=== PATIENT | female | born 1945 | race Caucasian/White ===

== ENCOUNTER 2020-10-14 02:55 | Outpatient (CLI) | payer MEDICARE, OTHER | END 2020-10-14 23:59 | disposition home or self-care (01) | LOC: RT 02:55 | PROVIDERS: ATTEND Internal Medicine Pulmonary Disease | DX: R94.2 Abnormal results of pulmonary function studies (principal); J45.909 Unspecified asthma, uncomplicated | CPT/HCPCS: 94010; 94618 ==

== ENCOUNTER 2024-05-08 15:07 | Inpatient (IN) | payer MEDICARE, OTHER ==
[~2024-05-08] VITALS: Ht 160 cm; Wt 105.7 kg
[2024-05-08] MEDS ORDERED: iohexol 350MG/ML 100ml bottle IV ONE (15:31)
[2024-05-08 15:53] LABS: BASOPHILS % (AUTO) 0.3 % (0-1); EOSINOPHILS # (AUTO) 0.5 X10'3 (0-0.9); EOSINOPHILS % (AUTO) 5.1 % (0-6); HEMATOCRIT 41.4 % (35.0-45.0); HEMOGLOBIN 13.5 g/dl (12.0-16.0); LYMPHOCYTES # (AUTO) 1.9 X10'3 (1.1-4.8); LYMPHOCYTES % (AUTO) 21.2 % (21-51); MEAN CORPUSCULAR HEMOGLOBIN 29.1 PG (27.0-31.0); MEAN CORPUSCULAR HGB CONC 32.5 g/dL (33.0-36.5); MEAN CORPUSCULAR VOLUME 89.5 FL (78-98); MEAN PLATELET VOLUME 7.9 FL (7.4-10.4); MONOCYTES # (AUTO) 0.8 X10'3 (0-0.9); MONOCYTES % (AUTO) 9.1 % (2-12); NEUTROPHILS # (AUTO) 5.9 X10'3 (1.8-7.7); NEUTROPHILS % (AUTO) 64.3 % (42-75); PLATELET COUNT 250 X10'3 (140-440); RED BLOOD COUNT 4.63 X10'6 (4.20-5.60); RED CELL DISTRIBUTION WIDTH 15.1 % (11.5-14.5); WHITE BLOOD COUNT 9.2 X10'3 (4.5-11.0)
[2024-05-08 16:03] LABS: ANION GAP 8 (8-16); BLOOD UREA NITROGEN 26 MG/DL (7-18); BUN/CREATININE RATIO 25.2 (10.0-20.0); CALCIUM 9.8 MG/DL (8.5-10.1); CHLORIDE 106 MMOL/L (99-107); CREATININE 1.03 MG/DL (0.40-0.90); GLUCOSE 148 MG/DL (70-104); POTASSIUM 3.7 MMOL/L (3.5-5.1); SODIUM 145 MMOL/L (135-145); TOTAL CARBON DIOXIDE 31.1 MMOL/L (24-32); eCRCL 35 ML/MIN; eGFR 51 ML/MIN
[2024-05-08 16:12] LABS: APTT 26 SECONDS (22-32); PROTHROMBIN TIME 10.4 SECONDS (9.0-12.0)
[2024-05-08] MEDS ORDERED: ondansetron/PF 4mg/2ml inj IV PRN (19:00)
[2024-05-08] MEDS ORDERED: magnesium hydroxide 30ml (MOM) UD suspension PO PRN (19:00)
[2024-05-08] MEDS ORDERED: magnesium Cl slow-release 64mg tablet PO PRN (19:00)
[2024-05-08] MEDS ORDERED: mag hydrox/Alum hydrox/simeth 30ml oral suspension PO PRN (19:00)
[2024-05-08] MEDS ORDERED: potassium Cl 20 mEq SR tablet PO PRN ×2 (19:00)
[2024-05-08] MEDS ORDERED: potassium Cl 40MEQ/1/2NS 520ml 520 ML IV PRN (19:00)
[2024-05-08] MEDS ORDERED: magnesium sulf-water 2g/50mL 50 ML IV PRN (19:00)
[2024-05-08] MEDS ORDERED: magnesium sulf-water 4G/100mL 100 ML IV PRN (19:00)
[2024-05-08 19:58] LABS: HEMOGLOBIN A1C 6.3 % (4.5-6.2)
[2024-05-08] MEDS: K and/or MAG REPLACEMENT MC SCH (20:00)
[2024-05-08] MEDS: labetalol 20mg/4ml (5mg/ml) syringe IV PRN (20:45)
[2024-05-08] MEDS: aspirin 325mg tablet, delayed-release (Ecotrin) PO ONE (20:50)
[2024-05-08] MEDS: docusate sod 100mg capsule PO SCH (20:50)
[2024-05-08] MEDS: ROSUVASTATIN CALCIUM 5 MG TABLET PO SCH (20:51)
[2024-05-08] MEDS: clopidogrel 300mg tablet PO ONE (20:58)
[2024-05-08] MEDS: normal saline 1000ml 1,000 ML IV SCH (21:01)
[2024-05-08] MEDS ORDERED: FLUT1DIS20 INH (22:00)
[2024-05-08] MEDS ORDERED: ALBU18HF2 INH (22:01)
[2024-05-08] MEDS ORDERED: HYDR50TA46 PO (22:01)
[2024-05-08] MEDS ORDERED: FURO-150 PO (22:02)
[2024-05-08] MEDS ORDERED: NIFE90TA70 PO (22:04)
[2024-05-08] MEDS ORDERED: NIFE-128 PO (22:04)
[2024-05-08] MEDS ORDERED: HYDR100T12 PO (22:17)
[2024-05-08] MEDS: hydrALAZINE 20mg/ml inj. IV PRN (23:10)
[2024-05-09 02:19] LABS: BASOPHILS # (AUTO) 0.1 X10'3 (0-0.2); BASOPHILS % (AUTO) 1.2 % (0-1); EOSINOPHILS # (AUTO) 0.5 X10'3 (0-0.9); EOSINOPHILS % (AUTO) 5.9 % (0-6); HEMATOCRIT 39.9 % (35.0-45.0); LYMPHOCYTES % (AUTO) 21.7 % (21-51); MEAN CORPUSCULAR HEMOGLOBIN 28.7 PG (27.0-31.0); MEAN CORPUSCULAR HGB CONC 32.6 g/dL (33.0-36.5); MEAN CORPUSCULAR VOLUME 88.2 FL (78-98); MONOCYTES # (AUTO) 0.8 X10'3 (0-0.9); NEUTROPHILS # (AUTO) 5.7 X10'3 (1.8-7.7); NEUTROPHILS % (AUTO) 62.2 % (42-75); PLATELET COUNT 246 X10'3 (140-440); RED BLOOD COUNT 4.52 X10'6 (4.20-5.60); RED CELL DISTRIBUTION WIDTH 14.8 % (11.5-14.5); WHITE BLOOD COUNT 9.2 X10'3 (4.5-11.0)
[2024-05-09 02:36] LABS: ALANINE AMINOTRANSFERASE 31 U/L (12-78); ALBUMIN 3.5 G/DL (3.4-5.0); ALBUMIN/GLOBULIN RATIO 1.1 (1.1-1.5); ALKALINE PHOSPHATASE 61 IU/L (46-116); ANION GAP 8 (8-16); ASPARTATE AMINO TRANSFERASE 24 U/L (10-37); BILIRUBIN,TOTAL 0.4 MG/DL (0.1-1.0); BLOOD UREA NITROGEN 22 MG/DL (7-18); BUN/CREATININE RATIO 23.7 (10.0-20.0); CALCIUM 9.2 MG/DL (8.5-10.1); CHLORIDE 106 MMOL/L (99-107); CHOL/HDL RATIO 3.3 (0.00-4.99); CHOLESTEROL 218 MG/DL (0-200); CREATININE 0.93 MG/DL (0.40-0.90); GLUCOSE 164 MG/DL (70-104); HDL CHOLESTEROL 66 MG/DL (35-60); LDL CHOLESTEROL 122 MG/DL (50-100); MAGNESIUM 1.8 MG/DL (1.5-2.4); POTASSIUM 3.6 MMOL/L (3.5-5.1); SODIUM 141 MMOL/L (135-145); TOTAL PROTEIN 6.7 G/DL (6.4-8.2); TRIGLYCERIDES 91 MG/DL (20-135); eCRCL 39 ML/MIN; eGFR 58 ML/MIN
[2024-05-09] MEDS: Fluticasone/Salmeterol (Advair 250-50 Diskus) IH SCH (08:00)
[2024-05-09] MEDS: LORazepam 2 mg/ml vial IV ONE (09:52)
[2024-05-09] MEDS: aspirin 81mg, enteric-coated 1 TAB TABLET.DR PO SCH (09:54)
[2024-05-09] MEDS: clopidogrel 75mg tablet PO SCH (09:56)
[2024-05-09] MEDS: enoxaparin 40mg/0.4ml syringe SUBCUT SCH (09:59)
[2024-05-09 12:11] VITALS: PULSE 56; RESP 16; O2SAT 97
[2024-05-09] MEDS: albuterol 2.5 MG/3 ML nebule NEB SCH (14:00)
[2024-05-09] MEDS: budesonide 0.5mg/2ml UD nebule IH SCH (20:00)
[2024-05-09] MEDS: amLODIPine 5mg tablet PO SCH (21:41)
[2024-05-09] MEDS: losartan 50mg tablet PO SCH (21:42)
[2024-05-09 22:15] VITALS: BP 211/83; PULSE 61; RESP 10; TEMP 97.7; O2SAT 95
[2024-05-10] VITALS (8 sets, daily range): BP systolic 103–200; BP diastolic 33–86; PULSE 42–60; RESP 14–20; TEMP 97.6–98.1; O2SAT 93–97
[2024-05-10 05:01] LABS: BASOPHILS # (AUTO) 0.1 X10'3 (0-0.2); EOSINOPHILS # (AUTO) 0.6 X10'3 (0-0.9); EOSINOPHILS % (AUTO) 7.5 % (0-6); HEMATOCRIT 39.5 % (35.0-45.0); HEMOGLOBIN 12.9 g/dl (12.0-16.0); LYMPHOCYTES % (AUTO) 25.8 % (21-51); MEAN CORPUSCULAR HEMOGLOBIN 28.7 PG (27.0-31.0); MEAN CORPUSCULAR HGB CONC 32.6 g/dL (33.0-36.5); MEAN CORPUSCULAR VOLUME 88.1 FL (78-98); MONOCYTES # (AUTO) 0.8 X10'3 (0-0.9); MONOCYTES % (AUTO) 9.7 % (2-12); NEUTROPHILS # (AUTO) 4.4 X10'3 (1.8-7.7); PLATELET COUNT 243 X10'3 (140-440); RED BLOOD COUNT 4.48 X10'6 (4.20-5.60); RED CELL DISTRIBUTION WIDTH 14.6 % (11.5-14.5); WHITE BLOOD COUNT 7.9 X10'3 (4.5-11.0)
[2024-05-10 05:28] LABS: ALANINE AMINOTRANSFERASE 24 U/L (12-78); ALBUMIN 3.2 G/DL (3.4-5.0); ALKALINE PHOSPHATASE 60 IU/L (46-116); ANION GAP 8 (8-16); ASPARTATE AMINO TRANSFERASE 25 U/L (10-37); BILIRUBIN,TOTAL 0.4 MG/DL (0.1-1.0); BLOOD UREA NITROGEN 29 MG/DL (7-18); BUN/CREATININE RATIO 30.5 (10.0-20.0); CALCIUM 9.4 MG/DL (8.5-10.1); CHLORIDE 109 MMOL/L (99-107); CREATININE 0.95 MG/DL (0.40-0.90); GLUCOSE 125 MG/DL (70-104); MAGNESIUM 2.1 MG/DL (1.5-2.4); POTASSIUM 3.9 MMOL/L (3.5-5.1); SODIUM 142 MMOL/L (135-145); TOTAL CARBON DIOXIDE 24.8 MMOL/L (24-32); TOTAL PROTEIN 6.3 G/DL (6.4-8.2); eCRCL 38 ML/MIN; eGFR 56 ML/MIN
[2024-05-10] MEDS ORDERED: phenylephrine 10mg/ml inj. -priapism dosing ONE (13:48)
[2024-05-10] MEDS ORDERED: atropine 0.1mg/ml 10ml syringe ONE (13:48)
[2024-05-10] MEDS ORDERED: LIDOcaine 1% 30ml preserv. free vial ONE (13:48)
[2024-05-10] MEDS ORDERED: iohexol 350MG/ML 100ml bottle IV ONE (13:48)
[2024-05-10] MEDS ORDERED: heparin 1,000unit/ml 10ml vial 10 ML ONE (13:48)
[2024-05-10] MEDS ORDERED: DOPamine 400mg/D5W 250ml 0 ML IV ONE (13:49)
[2024-05-10] MEDS ORDERED: aspirin 325mg tablet ONE (14:53)
[2024-05-10] MEDS ORDERED: clopidogrel 300mg tablet ONE ×2 (14:53→15:24)
[2024-05-10] MEDS: losartan 50mg tablet PO SCH (20:42)
[2024-05-11] VITALS (10 sets, daily range): BP systolic 113–146; BP diastolic 24–58; PULSE 40–50; RESP 10–18; TEMP 97.3–98.6; O2SAT 37–95
[2024-05-11] MEDS: amLODIPine 5mg tablet PO SCH (08:00)
[2024-05-11 09:08] LABS: BASOPHILS # (AUTO) 0.1 X10'3 (0-0.2); BASOPHILS % (AUTO) 0.9 % (0-1); EOSINOPHILS # (AUTO) 0.5 X10'3 (0-0.9); EOSINOPHILS % (AUTO) 5.4 % (0-6); HEMATOCRIT 34.6 % (35.0-45.0); HEMOGLOBIN 11.3 g/dl (12.0-16.0); LYMPHOCYTES # (AUTO) 2.2 X10'3 (1.1-4.8); MEAN CORPUSCULAR HGB CONC 32.7 g/dL (33.0-36.5); MEAN CORPUSCULAR VOLUME 88.8 FL (78-98); MEAN PLATELET VOLUME 8.3 FL (7.4-10.4); MONOCYTES # (AUTO) 0.9 X10'3 (0-0.9); MONOCYTES % (AUTO) 9.4 % (2-12); NEUTROPHILS # (AUTO) 5.6 X10'3 (1.8-7.7); NEUTROPHILS % (AUTO) 60.3 % (42-75); PLATELET COUNT 204 X10'3 (140-440); RED CELL DISTRIBUTION WIDTH 14.4 % (11.5-14.5); WHITE BLOOD COUNT 9.3 X10'3 (4.5-11.0)
[2024-05-11 09:29] LABS: ALANINE AMINOTRANSFERASE 21 U/L (12-78); ALBUMIN/GLOBULIN RATIO 1.1 (1.1-1.5); ALKALINE PHOSPHATASE 51 IU/L (46-116); ANION GAP 8 (8-16); ASPARTATE AMINO TRANSFERASE 14 U/L (10-37); BILIRUBIN,TOTAL 0.3 MG/DL (0.1-1.0); BLOOD UREA NITROGEN 39 MG/DL (7-18); BUN/CREATININE RATIO 29.1 (10.0-20.0); CALCIUM 9.1 MG/DL (8.5-10.1); CHLORIDE 107 MMOL/L (99-107); CREATININE 1.34 MG/DL (0.40-0.90); GLUCOSE 130 MG/DL (70-104); MAGNESIUM 1.8 MG/DL (1.5-2.4); POTASSIUM 4.4 MMOL/L (3.5-5.1); SODIUM 139 MMOL/L (135-145); TOTAL CARBON DIOXIDE 24.3 MMOL/L (24-32); TOTAL PROTEIN 5.8 G/DL (6.4-8.2); eCRCL 27 ML/MIN; eGFR 38 ML/MIN
[2024-05-11] MEDS ORDERED: albuterol 2.5 MG/3 ML nebule NEB PRN (18:05)
[2024-05-11] MEDS: ofloxacin 0.33% 5ml ophthalmic drops EACHEYE SCH (20:24)
[2024-05-11] MEDS: normal saline 1000ml 1,000 ML IV SCH (20:32)
[2024-05-12] VITALS (8 sets, daily range): BP systolic 139–155; BP diastolic 28–53; PULSE 37–47; RESP 13–18; TEMP 98.4–98.7; O2SAT 93–97
[2024-05-12 06:10] LABS: BASOPHILS % (AUTO) 0.5 % (0-1); EOSINOPHILS # (AUTO) 0.6 X10'3 (0-0.9); EOSINOPHILS % (AUTO) 8.1 % (0-6); HEMATOCRIT 35.2 % (35.0-45.0); HEMOGLOBIN 11.4 g/dl (12.0-16.0); LYMPHOCYTES % (AUTO) 25.4 % (21-51); MEAN CORPUSCULAR HGB CONC 32.5 g/dL (33.0-36.5); MEAN CORPUSCULAR VOLUME 89.4 FL (78-98); MEAN PLATELET VOLUME 8.8 FL (7.4-10.4); MONOCYTES # (AUTO) 0.8 X10'3 (0-0.9); MONOCYTES % (AUTO) 9.8 % (2-12); NEUTROPHILS # (AUTO) 4.5 X10'3 (1.8-7.7); NEUTROPHILS % (AUTO) 56.2 % (42-75); PLATELET COUNT 181 X10'3 (140-440); RED BLOOD COUNT 3.94 X10'6 (4.20-5.60); RED CELL DISTRIBUTION WIDTH 14.5 % (11.5-14.5); WHITE BLOOD COUNT 7.9 X10'3 (4.5-11.0)
[2024-05-12 06:31] LABS: ALANINE AMINOTRANSFERASE 23 U/L (12-78); ALBUMIN 3.2 G/DL (3.4-5.0); ALKALINE PHOSPHATASE 54 IU/L (46-116); ANION GAP 8 (8-16); ASPARTATE AMINO TRANSFERASE 17 U/L (10-37); BILIRUBIN,TOTAL 0.3 MG/DL (0.1-1.0); BLOOD UREA NITROGEN 46 MG/DL (7-18); CALCIUM 9.5 MG/DL (8.5-10.1); CHLORIDE 107 MMOL/L (99-107); CREATININE 1.18 MG/DL (0.40-0.90); GLUCOSE 122 MG/DL (70-104); POTASSIUM 4.1 MMOL/L (3.5-5.1); SODIUM 140 MMOL/L (135-145); TOTAL CARBON DIOXIDE 24.9 MMOL/L (24-32); TOTAL PROTEIN 6.3 G/DL (6.4-8.2); eCRCL 31 ML/MIN; eGFR 44 ML/MIN
[2024-05-12] MEDS: furosemide 20MG tablet PO SCH (10:17)
[2024-05-13] VITALS (10 sets, daily range): BP systolic 137–157; BP diastolic 38–52; PULSE 40–61; RESP 14–18; TEMP 97.8–98.6; O2SAT 93–98
[2024-05-13 09:04] LABS: BASOPHILS # (AUTO) 0.1 X10'3 (0-0.2); BASOPHILS % (AUTO) 0.9 % (0-1); EOSINOPHILS # (AUTO) 0.7 X10'3 (0-0.9); HEMOGLOBIN 11.6 g/dl (12.0-16.0); LYMPHOCYTES # (AUTO) 1.9 X10'3 (1.1-4.8); LYMPHOCYTES % (AUTO) 22.4 % (21-51); MEAN CORPUSCULAR HEMOGLOBIN 29.6 PG (27.0-31.0); MEAN CORPUSCULAR HGB CONC 33.1 g/dL (33.0-36.5); MEAN CORPUSCULAR VOLUME 89.5 FL (78-98); MEAN PLATELET VOLUME 8.9 FL (7.4-10.4); MONOCYTES # (AUTO) 0.9 X10'3 (0-0.9); MONOCYTES % (AUTO) 10.4 % (2-12); NEUTROPHILS # (AUTO) 4.8 X10'3 (1.8-7.7); NEUTROPHILS % (AUTO) 58.3 % (42-75); PLATELET COUNT 172 X10'3 (140-440); RED BLOOD COUNT 3.91 X10'6 (4.20-5.60); RED CELL DISTRIBUTION WIDTH 14.2 % (11.5-14.5); WHITE BLOOD COUNT 8.3 X10'3 (4.5-11.0)
[2024-05-13 09:11] LABS: ALANINE AMINOTRANSFERASE 26 U/L (12-78); ALBUMIN 3.1 G/DL (3.4-5.0); ALKALINE PHOSPHATASE 54 IU/L (46-116); ANION GAP 8 (8-16); ASPARTATE AMINO TRANSFERASE 17 U/L (10-37); BILIRUBIN,TOTAL 0.3 MG/DL (0.1-1.0); BLOOD UREA NITROGEN 44 MG/DL (7-18); CALCIUM 9.6 MG/DL (8.5-10.1); CHLORIDE 109 MMOL/L (99-107); GLUCOSE 123 MG/DL (70-104); POTASSIUM 4.1 MMOL/L (3.5-5.1); SODIUM 143 MMOL/L (135-145); TOTAL CARBON DIOXIDE 26.1 MMOL/L (24-32); TOTAL PROTEIN 6.2 G/DL (6.4-8.2); eCRCL 33 ML/MIN; eGFR 48 ML/MIN
[2024-05-13] MEDS: acetaminophen 325mg tablet PO PRN (14:16)
[2024-05-13] MEDS ORDERED: clopidogrel 75mg tablet PO SCH (14:35)
[2024-05-13] MEDS ORDERED: aspirin 81mg, enteric-coated 1 TAB TABLET.DR PO SCH (14:35)
[2024-05-13] MEDS ORDERED: LIDOcaine 1% w/EPI 1:100,000 inj. MDV 50 ML VIAL ONE (16:53)
[2024-05-13] MEDS ORDERED: fentaNYL/PF 50MCG/1 ML 2ML syringe ONE (16:53)
[2024-05-13] MEDS ORDERED: midazolam 1 mg/ML 2ml injection ONE ×2 (16:53→17:44)
[2024-05-13] MEDS ORDERED: ceFAZolin 1000mg inj ONE ×2 (16:54)
[2024-05-13] MEDS: cephalexin 500mg capsule PO SCH (20:29)
[2024-05-13] MEDS: clopidogrel 75mg tablet PO SCH (20:29)
[2024-05-13] MEDS: aspirin 81mg, enteric-coated 1 TAB TABLET.DR PO SCH (20:30)
[2024-05-14 02:00] VITALS: BP 141/46; PULSE 60; RESP 16; TEMP 98; O2SAT 96
[2024-05-14] MEDS ORDERED: albuterol 2.5 MG/3 ML nebule NEB PRN (02:09)
[2024-05-14] MEDS ORDERED: hydrALAZINE 20mg/ml inj. IV PRN (02:10)
[2024-05-14] MEDS ORDERED: pseudoephedrine 30mg tablet PO PRN (02:10)
[2024-05-14] MEDS ORDERED: HYDROcodone/acetaminophen 10/325mg tab PO PRN (02:10)
[2024-05-14 05:50] LABS: BASOPHILS # (AUTO) 0.1 X10'3 (0-0.2); BASOPHILS % (AUTO) 0.8 % (0-1); EOSINOPHILS # (AUTO) 0.5 X10'3 (0-0.9); EOSINOPHILS % (AUTO) 6.4 % (0-6); HEMATOCRIT 34.5 % (35.0-45.0); HEMOGLOBIN 11.1 g/dl (12.0-16.0); LYMPHOCYTES # (AUTO) 1.7 X10'3 (1.1-4.8); MEAN CORPUSCULAR HEMOGLOBIN 28.9 PG (27.0-31.0); MEAN CORPUSCULAR HGB CONC 32.2 g/dL (33.0-36.5); MEAN CORPUSCULAR VOLUME 89.6 FL (78-98); MEAN PLATELET VOLUME 8.5 FL (7.4-10.4); MONOCYTES # (AUTO) 0.9 X10'3 (0-0.9); MONOCYTES % (AUTO) 10.9 % (2-12); NEUTROPHILS # (AUTO) 5.1 X10'3 (1.8-7.7); NEUTROPHILS % (AUTO) 61.9 % (42-75); PLATELET COUNT 189 X10'3 (140-440); RED BLOOD COUNT 3.85 X10'6 (4.20-5.60); RED CELL DISTRIBUTION WIDTH 14.6 % (11.5-14.5); WHITE BLOOD COUNT 8.3 X10'3 (4.5-11.0)
[2024-05-14 06:00] VITALS: BP 159/59; PULSE 62; RESP 16; TEMP 96.8; O2SAT 96
[2024-05-14 06:10] LABS: ALANINE AMINOTRANSFERASE 35 U/L (12-78); ALBUMIN 2.8 G/DL (3.4-5.0); ALKALINE PHOSPHATASE 53 IU/L (46-116); ANION GAP 9 (8-16); ASPARTATE AMINO TRANSFERASE 22 U/L (10-37); BILIRUBIN,TOTAL 0.2 MG/DL (0.1-1.0); BLOOD UREA NITROGEN 33 MG/DL (7-18); BUN/CREATININE RATIO 37.9 (10.0-20.0); CALCIUM 9.1 MG/DL (8.5-10.1); CHLORIDE 112 MMOL/L (99-107); CREATININE 0.87 MG/DL (0.40-0.90); GLUCOSE 134 MG/DL (70-104); SODIUM 146 MMOL/L (135-145); TOTAL CARBON DIOXIDE 24.6 MMOL/L (24-32); TOTAL PROTEIN 5.7 G/DL (6.4-8.2); eCRCL 42 ML/MIN; eGFR 62 ML/MIN
[2024-05-14 08:00] VITALS: RESP 16; O2SAT 96
[2024-05-14] MEDS: hydrALAZINE 25 MG tablet PO SCH (08:03)
[2024-05-14] MEDS: HYDROcodone/acetaminophen 5mg/325mg tablet PO PRN (08:07)
[2024-05-14] MEDS: furosemide 40mg tablet PO SCH (08:07)
[2024-05-14] MEDS: NIFEdipine XL 30mg tablet PO SCH (08:08)
[2024-05-14] MEDS ORDERED: ASPI-1071 PO (09:39)
[2024-05-14] MEDS ORDERED: ROSU40TA PO (09:39)
[2024-05-14 11:00] VITALS: BP 118/40; PULSE 60; RESP 11; TEMP 97; O2SAT 94
[2024-05-14] MEDS ORDERED: CLOP75TA34 PO (12:29)
[2024-05-14] MEDS ORDERED: LOSA100T58 PO (12:31)
[2024-05-14] MEDS ORDERED: OFLO5DRO EACHEYE (12:35)
[2024-05-14] MEDS ORDERED: LACT1CAP26 PO (12:36)
[2024-05-14] MEDS ORDERED: CEPH-585 PO (12:39)
[2024-05-14] MEDS ORDERED: DAPA1TAB3 PO ×2 (12:42→15:10)
[2024-05-14] MEDS ORDERED: FURO-150 PO ×2 (12:45→15:10)
[2024-05-14 14:16] VITALS: RESP 19
== END 2024-05-14 15:30 | disposition home or self-care (01) | DRG 34 ==
LOC: ER 15:08 → UNDOADMIN 17:31 → ED HOLD 17:31 → UNDOADMIN 19:00 → ED HOLD 19:00 → PCU 3S 05-09 22:20
PROVIDERS: ADMIT Family Medicine; ATTEND Family Medicine
PROC: 037K3DZ Dilation of Right Internal Carotid Artery with Intraluminal Device, Percutaneous Approach (ICD-10-PCS; principal; 2024-05-10)
PROC: B4101ZZ Fluoroscopy of Abdominal Aorta using Low Osmolar Contrast (ICD-10-PCS; 2024-05-10)
PROC: B41F1ZZ Fluoroscopy of Right Lower Extremity Arteries using Low Osmolar Contrast (ICD-10-PCS; 2024-05-10)
PROC: B3251ZZ Computerized Tomography (CT Scan) of Bilateral Common Carotid Arteries using Low Osmolar Contrast (ICD-10-PCS; 2024-05-10)
PROC: B32G1ZZ Computerized Tomography (CT Scan) of Bilateral Vertebral Arteries using Low Osmolar Contrast (ICD-10-PCS; 2024-05-10)
PROC: B32R1ZZ Computerized Tomography (CT Scan) of Intracranial Arteries using Low Osmolar Contrast (ICD-10-PCS; 2024-05-10)
PROC: B3281ZZ Computerized Tomography (CT Scan) of Bilateral Internal Carotid Arteries using Low Osmolar Contrast (ICD-10-PCS; 2024-05-10)
PROC: 0JH606Z Insertion of Pacemaker, Dual Chamber into Chest Subcutaneous Tissue and Fascia, Open Approach (ICD-10-PCS; 2024-05-13)
PROC: 02H63JZ Insertion of Pacemaker Lead into Right Atrium, Percutaneous Approach (ICD-10-PCS; 2024-05-13)
PROC: B5171ZZ Fluoroscopy of Left Subclavian Vein using Low Osmolar Contrast (ICD-10-PCS; 2024-05-13)
PROC: 02HK3JZ Insertion of Pacemaker Lead into Right Ventricle, Percutaneous Approach (ICD-10-PCS; 2024-05-13)
DX: I65.23 Occlusion and stenosis of bilateral carotid arteries (principal); N17.0 Acute kidney failure with tubular necrosis; I44.1 Atrioventricular block, second degree; E86.0 Dehydration; I16.0 Hypertensive urgency; R73.9 Hyperglycemia, unspecified; G43.909 Migraine, unspecified, not intractable, without status migrainosus; Z66 Do not resuscitate; I10 Essential (primary) hypertension; J44.9 Chronic obstructive pulmonary disease, unspecified; R00.1 Bradycardia, unspecified; Z88.8 Allergy status to other drugs, medicaments and biological substances; Z79.899 Other long term (current) drug therapy; Z87.891 Personal history of nicotine dependence; Z90.49 Acquired absence of other specified parts of digestive tract; Z86.73 Personal history of transient ischemic attack (TIA), and cerebral infarction without residual deficits
CPT/HCPCS: 33208; 36415; 37215; 70450; 70496; 70498; 70551; 71045; 80048; 80053; 80061; 82948; 83036; 83735; 85025; 85610; 85730; 93005; 93306; 93880; 94660; 94760; 97116; 97162; 99152; 99153; 99291; A6258; A6402; C1725; C1760; C1769; C1785; C1876; C1884; C1887; C1894; C1898; G0378; J0360; J0461; J0690; J1265; J1644; J1650; J2060; J2250; J2370; J3010; J3490; J7030; Q9967

== ENCOUNTER 2024-06-01 10:58 | Emergency (ER) | payer MEDICARE, OTHER ==
[~2024-06-01] VITALS: Ht 160 cm; Wt 105.1 kg
[~2024-06-01 10:58] MED LIST: ALBU18HF2 INH; ASPI-1071 PO; CEPH-585 PO; CLOP75TA34 PO; DAPA1TAB3 PO; FLUT1DIS20 INH; FURO-150 PO; HYDR100T12 PO; LACT1CAP26 PO; LOSA100T58 PO; NIFE-128 PO; OFLO5DRO EACHEYE; ROSU40TA PO
[2024-06-01] MEDS ORDERED: FURO40TA4 PO (12:44)
[2024-06-01] MEDS ORDERED: CLOP75TA33 PO (12:44)
[2024-06-01] MEDS ORDERED: ROSU40TA71 PO (12:44)
[2024-06-01] MEDS ORDERED: APIX5TAB3 PO (12:52)
[2024-06-01] MEDS: apixaban 5mg tablet PO ONE (12:58)
[2024-06-01 13:04] VITALS: BP 164/61; PULSE 65; RESP 13; TEMP 98.1; O2SAT 95
== END 2024-06-01 13:06 | disposition home or self-care (01) ==
LOC: ER 10:59
DX: R60.0 Localized edema (principal); I82.890 Acute embolism and thrombosis of other specified veins; I10 Essential (primary) hypertension; Z88.8 Allergy status to other drugs, medicaments and biological substances; Z79.899 Other long term (current) drug therapy; Z79.51 Long term (current) use of inhaled steroids; Z79.2 Long term (current) use of antibiotics; Z86.73 Personal history of transient ischemic attack (TIA), and cerebral infarction without residual deficits; Z95.0 Presence of cardiac pacemaker
CPT/HCPCS: 93971; 99285

== ENCOUNTER → 2024-07-12 | Emergency (ER) | payer MEDICARE, OTHER ==
[~2024-07-12] VITALS: Ht 160 cm; Wt 101.4 kg
[~2024-07-12] MED LIST changes: +APIX5TAB3 PO; -ASPI-1071 PO; -CEPH-585 PO; +CLOP75TA33 PO; -CLOP75TA34 PO; -DAPA1TAB3 PO; -FURO-150 PO; +FURO40TA4 PO; +HYDR-3965 PO; -LACT1CAP26 PO; -ROSU40TA PO; +ROSU40TA89 PO; +quetiapine 100mg tablet PO SCH
[2024-07-12 03:32] VITALS: BP 154/77; PULSE 86; RESP 19; TEMP 97; O2SAT 97
[2024-07-12] MEDS: dexamethasone 4mg tablet PO ONE (04:42)
[2024-07-12] MEDS: orphenadrine citrate 60mg/2ml inj. IM ONE (04:42)
[2024-07-12] MEDS: QUEtiapine 25mg tablet PO ONE (05:06)
[2024-07-12] MEDS: quetiapine 100mg tablet PO ONE (05:07)
== END | disposition home or self-care (01) ==
LOC: ER 03:30
DX: M25.552 Pain in left hip (principal); I10 Essential (primary) hypertension; Z88.8 Allergy status to other drugs, medicaments and biological substances; Z79.02 Long term (current) use of antithrombotics/antiplatelets; Z86.718 Personal history of other venous thrombosis and embolism; Z86.73 Personal history of transient ischemic attack (TIA), and cerebral infarction without residual deficits; Z95.0 Presence of cardiac pacemaker
CPT/HCPCS: 72170; 96372; 99283; J2360